=== PATIENT | female | born 2005 ===

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

== ENCOUNTER 2025-04-02 14:19 | Emergency (ER) | payer OTHER, SELFPAY ==
[~2025-04-02] VITALS: Ht 154.9 cm; Wt 75.0 kg
[2025-04-02 16:16] VITALS: BP 117/75; TEMP 98.1; O2SAT 98
== END 2025-04-02 18:19 | disposition left against medical advice (07) ==
LOC: M ED 14:19
DX: Z53.21 Procedure and treatment not carried out due to patient leaving prior to being seen by health care provider (principal)